=== PATIENT | female | born 1990 | race Caucasian/White ===

== ENCOUNTER 2023-12-11 15:11 | Emergency (ER) | payer BC, MEDICAID, SELFPAY ==
[2023-12-11] VITALS (7 sets, daily range): BP systolic 113–153; BP diastolic 80–102; PULSE 76–120; RESP 12–20; TEMP 36.6; O2SAT 96–100
--- NOTE | ~2023-12-11 | XR_ITS ---
EXAMINATION: XR chest 2V DATE: 12/11/2023 15:32 INDICATION: Cough TECHNIQUE: PA and lateral views of the chest are obtained. COMPARISON: None available FINDINGS: The lungs are free of acute opacities. No pleural effusion or pneumothorax. The cardiomedia stinal silhouette is normal. The visualized bones and soft tissues are unremarkable. Surgical clips i n the right upper quadrant are likely from prior cholecystectomy. IMPRESSION: 1. No acute cardiopulmonary abnormality. Reviewed, dictated and finalized at location F. CTION CONTROL SPECIALIST
--- NOTE | ~2023-12-11 | CT_ITS ---
EXAMINATION: CTA chest PE protocol DATE: 12/11/2023 20:03 INDICATION: Shortness of breath and cough, history of pulmonary embolus TECHNIQUE: Computed tomography angiography (CTA) of the chest was performed with 100 mL Omnipaque-350 intravenous contrast timed to evaluate the pulmonary arteries. Coronal maximum intensity projection 3D-reconstructions were created by the technologist. The dose-length product (DLP) was 622.04 mGy-cm. Automated exposure control and iterative reconstruction technique were employed. COMPARISON: None. FINDINGS: The pulmonary arteries are well-opacified. No pulmonary embolism is identified. No patholog ically enlarged thoracic lymph nodes are identified. The heart size is normal. There is dependent ate lectasis of the lungs. There are airspace opacities of the lingula. No pleural effusion or pneumothor ax. Changes of cholecystectomy are noted. IMPRESSION: 1. No pulmonary embolus. 2. Lingular airspace opacities, consistent with pneumonia. Reviewed, dictated and finalized at location F. IAL EDUCATION PROFESSOR
--- NOTE | 2023-12-11 15:21 | ECG_ITS ---
Measurements Intervals [place] Rate: 83 P: 52 CA: 160 QRS: 22 QRSD: 82 T: 30 QT: 328 QTc: 386 Interpretive Statements SINUS RHYTHM BORDERLINE R WAVE PROGRESSION, ANTERIOR LEADS MINIMAL Q WAVES- INFERIOR LEADS BORDERLINE ECG NO PREVIOUS ECG AVAILABLE FOR COMPARISON Electronically Signed On 12-11-2023 16:42:43 IMPORT EXPORT MANAGER by Allan Agarwal D.O.
[2023-12-11 16:53] LABS: Basophils Absolute Auto 0.1 K/mm3 (0.0-0.1); Basophils Percent Auto 0.6 % (0.2-1.2); Eosinophils Absolute Auto 0.5 K/mm3 (0-0.3); Eosinophils Percent Auto 4.8 % (0-4.4); Hematocrit 46.2 % (37.0-47.0); Hemoglobin 15.2 g/dL (12.0-15.0); Immature Granulocyte Absolute 0.12 K/mm3 (0.00-0.031); Immature Granulocyte Percent A 1.2 % (0-0.5); Lymphocytes Absolute Auto 2.18 K/mm3 (0.9-3.2); Lymphocytes Percent Auto 21.4 % (18.3-44.2); Mean Corpuscular HGB Conc 32.9 g/dl (32-36); Mean Corpuscular Hemoglobin 27.9 pg (26-34); Mean Corpuscular Volume 84.9 fl (80-100); Mean Platelet Volume 8.5 fl (7.4-10.4); Monocytes Absolute Auto 0.6 K/mm3 (0.1-0.6); Monocytes Percent Auto 6.2 % (2.6-8.5); Neutrophils Absolute Auto 6.7 K/mm3 (1.3-6.7); Neutrophils Percent Auto 65.8 % (45.5-73.1); Platelet Count Result 397 k/mm3 (150-375); Red Blood Count 5.44 M/mm3 (4.2-5.4); Red Cell Distribution Width 13.2 % (11.5-14.5); White Blood Count 10.2 K/mm3 (4.5-10.0)
[2023-12-11 16:58] LABS: Alanine Aminotransferase 39 U/L (6-35); Albumin Level 4.3 g/dL (3.5-5.1); Alkaline Phosphatase 65 U/L (38-126); Anion Gap 9 mmol/L (8-16); Aspartate Amino Transferase 25 U/L (14-36); Bilirubin,Total 0.6 mg/dL (0.2-1.3); Blood Urea Nitrogen 10 mg/dL (7-17); Calcium 10.1 mg/dL (8.4-10.2); Carbon Dioxide 25 mmol/L (22-30); Chloride 102 mmol/L (98-107); Estimated CRCL calculation 135 ml/min; Estimated Glomerular Filt Rate > 60; Glucose 90 mg/dL (65-110); Sodium 136 mmol/L (137-145)
--- NOTE | 2023-12-11 19:03 | ED.SOB ---
HPI - SOB/Dyspnea General Chief Complaint: Shortness of Breath/Dyspnea <Marilu Michael PA-C - Last Filed: 12/11/23 22:25> Stated Complaint: shortness of breath/cough/asthma <Marilu Michael PA-C - Last Filed: 12/11/23 22:25> Time Seen by Provider: 12/11/23 18:37 <Marilu Michael PA-C - Last Filed: 12/11/23 22:25> History of Present Illness HPI Narrative: 33-year-old female with a history of a PE that was diagnosed in August at [facility] reports for evaluation for cough and congestion for 12-13 days. Patient was diagnosed with a PE 2 weeks after she had a section. She is unsure what caused the PE, she was never told if she had a bleeding disorder. She has been taking IM Lovenox since and has not missed any doses. For the past pelvis or 2 days, she has developed a cough with wheezing. She was seen at [facility] the onset of her symptoms and had x-ray and viral swabs performed which were negative. She was sent home with Lala. A few days later, her symptoms persisted so she went to [facility] ER. She was admitted for asthma exacerbation and was given IV steroids with improvement. She was discharged with DuoNebs and steroids and states her symptoms have again worsened Which prompted her to come to the ER today. She has finished her prednisone today. She reports having an episode of hemoptysis 1 week ago which resolved. She reports a history of childhood asthma, but denies asthma in her adulthood. She does follow with a station master at [facility] for her PE. Patient denies fever, abdominal pain, nausea or vomiting, BLE. She reports bilateral rib pain secondary to coughing. I was able to obtain patient's CTA PE impressions from her my chart from at [facility]. The following are her recent CTA impressions: 08/25/2024: PE seen the left lower lobe segmental and subsegmental. No heart strain. 09/07/2024: Unchanged acute PE and left lower lobe. 10/11/2024: Segmental and subsegmental PE in the left lower lobe is still present in the same distribution extent that it was on the prior 09/07. It has less bulkiness and is transitioning to more of a was P chronic appearance. No evidence of new clot or acute interval change. Patient states she has not had a repeat CTA performed on her prior ER visits For the same complaint. <Marilu Michael PA-C - Last Filed: 12/11/23 22:25> Related Data Allergies/Adverse Reactions: Allergies Allergy/AdvReac Type Severity Reaction Status Date / Time ciprofloxacin Allergy Unknown Verified 12/11/23 15:13 nitrofurantoin Allergy Unknown Verified 12/11/23 15:13 <Marilu Michael PA-C - Last Filed: 12/11/23 22:25> Review of Systems Review of Systems: CONSTITUTIONAL: Denies fever, chills, or sweats. EYES: Denies visual changes, redness, or discharge. ENT: Denies rhinorrhea, congestion, sore throat, or otalgia. CARDIOVASCULAR: see HPI RESPIRATORY: See HPI GASTROINTESTINAL: Denies abdominal pain, nausea, vomiting, or diarrhea. GENITOURINARY: Denies dysuria or hematuria. SKIN: Denies rash or itching. MUSCULOSKELETAL: Denies back pain, joint pain, or myalgia. NEUROLOGIC: Denies headache, numbness, or weakness. PSYCHIATRIC: Denies anxiety or depression. <Marilu Michael PA-C - Last Filed: 12/11/23 22:25> Exam Narrative: GENERAL: Well-appearing, well-nourished, and in no acute distress. patient resting comfortably in exam bed. She is pleasant and conversational. Satting 98% on room air and speaking in full sentences. HEAD: Normocephalic, atraumatic. EYES: PERRLA and EOMI. ENT: Nares clear, no rhinorrhea or epistaxis. Mucous membranes moist. Posterior pharynx without erythema or edema. No tonsillar hypertrophy. Uvula is midline. NECK: Supple. CHEST: expiratory wheezing in the right upper lobe, otherwise no reason, rales or rhonchi. HEART: Regular rate and rhythm. No murmur heard. Normal peripheral pulses. ABDOMEN: Soft, nontender, nondistend
[2023-12-11] MEDS: ALBUTEROL SULFATE NEB 2.5 MG/3 ML INH INHALATION (19:30)
[2023-12-11 19:49] LABS: NT Pro B Type Natriuretic Pept < 20 pg/mL (19.9-100)
[2023-12-11 19:52] LABS: Troponin I < 0.012 ng/mL (0.000-0.034)
[2023-12-11 20:07] LABS: Influenza A QL RT-PCR Negative (Negative); Influenza B QL RT-PCR Negative (Negative); RSV RNA, RT-PCR Negative (Negative); SARS-CoV-2 RNA PCR Negative (Negative)
[2023-12-11] MEDS: SODIUM CHLORIDE 0.9% IV 1,000 ML 999 ML IV CONT ×2 (20:47→22:04)
[2023-12-11] MEDS: AZITHROMYCIN 250 MG TABLET 500 MG PO (22:04)
[2023-12-11] MEDS: AMOXICILLIN/CLAVULANATE K 875-125 MG TAB 1 TABLET PO (22:04)
--- NOTE | 2023-12-11 22:29 | PC.NURSE ---
this rn assumed care of patient. this rn took patient report from tom rodriguez.
== END 2023-12-11 23:31 | disposition home or self-care (01) ==
PROVIDERS: Emergency Medicine; Emergency Provider Physician Assistant
DX: J18.9 Pneumonia, unspecified organism (principal); Z20.822 Contact with and (suspected) exposure to COVID-19; Z86.711 Personal history of pulmonary embolism; Z79.01 Long term (current) use of anticoagulants; R94.31 Abnormal electrocardiogram [ECG] [EKG]
CPT/HCPCS: 36415; 71046; 71275; 80053; 83880; 84484; 85025; 87637; 93005; 94640; 96360; 96361; 99284; A9270; J7030; Q9967

== ENCOUNTER 2024-06-03 15:03 | Emergency (ER) | payer BC, MEDICAID, SELFPAY ==
--- NOTE | ~2024-06-03 | CT_ITS ---
EXAMINATION: CT lumbar spine wo con DATE: 06/03/2024 19:02 INDICATION: Left-sided low back pain. TECHNIQUE: Computed tomography (CT) of the lumbar spine was performed without intravenous contrast. A utomated exposure control and iterative reconstruction technique were employed. The dose-length produ ct was 523.70 mGy-cm. COMPARISON: None FINDINGS: Bone alignment is normal. Vertebral body heights are normal. Intervertebral disc heights ar e normal. The following disc levels are specifically discussed: L1-L2: The disc does not extend beyond the endplate margin. There is severe right and mild left facet joint osteoarthritis. There is no neural foraminal stenosis. There is no central canal stenosis. L2-L3: The disc does not extend beyond the endplate margin. There is severe bilateral facet joint ost eoarthritis. There is no neural foraminal stenosis. There is no central canal stenosis. L3-L4: The disc does not extend beyond the endplate margin. There is moderate right and severe left f acet joint osteoarthritis. There is no neural foraminal stenosis. There is no central canal stenosis. L4-L5: The disc is bulging. There is moderate bilateral facet joint osteoarthritis. There is mild gene ateral neural foraminal stenosis. There is mild central canal stenosis. L5-S1: The disc is bulging. There is mild bilateral facet joint osteoarthritis. There is mild bilater al neural foraminal stenosis. There is mild central canal stenosis. IMPRESSION: 1. Mild lumbar spondylosis. Reviewed, dictated and finalized at location E. IMPRESSION: 1. Mild lumbar spondylosis.
--- NOTE | ~2024-06-03 | CT_ITS ---
EXAMINATION: CTA chest PE protocol DATE: 06/03/2024 19:02 INDICATION: Shortness of breath. Shoulder pain. TECHNIQUE: Computed tomography angiography (CTA) of the chest was performed with 100 mL Omnipaque-350 intravenous contrast timed to evaluate the pulmonary arteries. Coronal maximum intensity projection 3D-reconstructions were created by the technologist. Automated exposure control and iterative reconst ruction technique were employed. The dose-length product was 523.70 mGy-cm. COMPARISON: Chest CT 12/11/2023 FINDINGS: The lungs demonstrate minimal atelectasis. No pleural effusion. The heart size is normal. N o pericardial effusion. There are changes of cholecystectomy. There is no pulmonary embolus. There is mild thoracic spondylosis. IMPRESSION: 1. No pulmonary embolus. Reviewed, dictated and finalized at location E. IMPRESSION: 1. No pulmonary embolus.
--- NOTE | ~2024-06-03 | US_ITS ---
EXAMINATION: US venous doppler [facility] DATE: 06/03/2024 15:40 INDICATION: Left lower limb pain. TECHNIQUE: Grayscale ultrasound images without and with compression and Doppler ultrasound images of the left lower extremity veins were obtained. COMPARISON: None. FINDINGS: The visualized portions of left common femoral vein, profunda (deep) femoral vein, femoral vein, popl iteal vein, peroneal veins, posterior tibial veins, and greater saphenous vein outflow are patent. IMPRESSION: 1. No deep venous thrombosis. Reviewed, dictated and finalized at location E.
[2024-06-03 15:06] VITALS: BP 144/80; PULSE 72; RESP 16; TEMP 36.7; O2SAT 100
[2024-06-03 17:16] VITALS: BP 129/84; PULSE 76; RESP 18; O2SAT 98
[2024-06-03 17:20] LABS: Basophils Percent Auto 0.5 % (0.2-1.2); Eosinophils Absolute Auto 0.1 K/mm3 (0-0.3); Eosinophils Percent Auto 1.1 % (0-4.4); Hematocrit 43.4 % (37.0-47.0); Hemoglobin 14.7 g/dL (12.0-15.0); Immature Granulocyte Absolute 0.03 K/mm3 (0.00-0.031); Immature Granulocyte Percent A 0.4 % (0-0.5); Lymphocytes Absolute Auto 1.98 K/mm3 (0.9-3.2); Lymphocytes Percent Auto 24.5 % (18.3-44.2); Mean Corpuscular HGB Conc 33.9 g/dl (32-36); Mean Corpuscular Hemoglobin 29.5 pg (26-34); Mean Platelet Volume 8.5 fl (7.4-10.4); Monocytes Absolute Auto 0.5 K/mm3 (0.1-0.6); Monocytes Percent Auto 6.2 % (2.6-8.5); Neutrophils Absolute Auto 5.4 K/mm3 (1.3-6.7); Neutrophils Percent Auto 67.3 % (45.5-73.1); Platelet Count Result 382 k/mm3 (150-375); Red Blood Count 4.99 M/mm3 (4.2-5.4); Red Cell Distribution Width 12.3 % (11.5-14.5); White Blood Count 8.1 K/mm3 (4.5-10.0)
--- NOTE | 2024-06-03 17:24 | PC.NURSE ---
Addendum entered by Sole Gordillo RN 06/03/24 17:26: CMS intact to left lower extremity Original Note: pt c/o left hip pain that radiates down to left knee, causing numbness. Pt states was seen at [facility] ER prior to coming to [place] ER, pt states was told it was a meniscus tear to left knee. Pt states I have a history of PE 9 months ago & I know its a DVT Pt confrontational during assessment.
--- NOTE | 2024-06-03 17:24 | PC.NURSE ---
patient complaining of discomfort at IV site, site around iv bruised, tender and swollen. iv removed at this time.
[2024-06-03 17:31] VITALS: BP 136/96; PULSE 93; RESP 19; O2SAT 100
[2024-06-03 17:33] LABS: Prothrombin Time 13.2 Seconds (11.1-14.7)
[2024-06-03 17:34] LABS: Alanine Aminotransferase 20 U/L (6-35); Albumin Level 4.6 g/dL (3.5-5.1); Alkaline Phosphatase 39 U/L (38-126); Anion Gap 10 mmol/L (4-12); Aspartate Amino Transferase 26 U/L (14-36); Bilirubin,Total 1.2 mg/dL (0.2-1.3); Blood Urea Nitrogen 4 mg/dL (7-17); Calcium 9.1 mg/dL (8.4-10.2); Carbon Dioxide 25 mmol/L (22-30); Chloride 105 mmol/L (98-107); Estimated Glomerular Filt Rate > 60; Glucose 119 mg/dL (65-110); Partial Thromboplastin Time 28.3 Seconds (22.3-36.8); Potassium 3.6 mmol/L (3.4-5.0); Sodium 140 mmol/L (137-145)
--- NOTE | 2024-06-03 17:52 | ECG_ITS ---
Test Date: 2024-06-03 19:20:20 Measurements Intervals [place] Rate: 58 P: 44 FL: 172 QRS: 35 QRSD: 80 T: 14 QT: 416 QTc: 410 Interpretive Statements SINUS BRADYCARDIA BASELINE ARTIFACT- II, III, AVF, V1, V4 BORDERLINE ECG No previous ECG available for comparison Electronically Signed On 06-03-2024 19:28:10 CDT by Allan Agarwal D.O.
--- NOTE | 2024-06-03 17:58 | ED.EXTPRO ---
HPI - Extremity Problem General Chief complaint: Extremity Problem,Nontraumatic Stated complaint: LEFT leg dvt, hx of PE Time Seen by Provider: 06/03/24 17:16 Source: patient Mode of arrival: ambulatory Limitations: no limitations History of Present Illness HPI Narrative: This is a 33-year-old female that presents to the emergency department for left-sided hip pain. Reports radiation down the leg. Reports tingling down her leg as well. No recent injuries or trauma. She also reports she has been having some left shoulder pain. Reports feeling lightheaded upon standing and her heart racing. Reports similar symptoms when she had a PE which concerned her and prompted her to be seen. She was already seen for this complaint this morning at another hospital. Denies chest pain, erythema. Related Data Allergies Allergy/AdvReac Type Severity Reaction Status Date / Time ciprofloxacin Allergy Unknown Verified 12/11/23 15:13 nitrofurantoin Allergy Unknown Verified 12/11/23 15:13 Review of Systems Review of Systems: CONSTITUTIONAL: Denies fever CARDIOVASCULAR: Reports palpitations. Denies chest pain RESPIRATORY: Reports dyspnea. MUSCULOSKELETAL: Reports joint pain, and myalgia. NEUROLOGIC: Reports paresthesias All systems reviewed & are unremarkable except as noted in HPI and below PMFSH Past Medical History Medical History (Updated 06/03/24 @ 19:39 by Yakelin Witt PA-C) History of seasonal allergies Social History Social History (Updated 06/03/24 @ 18:01 by Yakelin Witt PA-C) Smoking status: Never smoker Exam Narrative: GENERAL: Well-appearing, well-nourished, and in no acute distress. HEAD: Normocephalic, atraumatic. EYES: EOMI. CHEST: Clear to auscultation. No respiratory distress. No wheezes rales or rhonchi HEART: Regular rate and rhythm. No murmur heard. Normal peripheral pulses. BACK: No midline spinal tenderness EXTREMITIES: Normal range of motion. No edema or erythema. Normal DP pulses SKIN: Warm, dry, no rash. NEURO: No focal deficits. Alert and oriented x3. PSYCH: Normal mood and affect Course Course Emergency Course: Patient updated on workup and agrees with plan of care Vital Signs Vital signs: Vital Signs Temperature 98.0 F 06/03/24 15:06 Pulse Rate 72 06/03/24 15:06 Respiratory Rate 16 06/03/24 15:06 Blood Pressure 144/80 H 06/03/24 15:06 Pulse Oximetry 100 06/03/24 15:06 Temperature 98.0 F 06/03/24 15:06 Pulse Rate 78 06/03/24 19:03 Respiratory Rate 19 06/03/24 19:03 Blood Pressure 136/96 H 06/03/24 17:31 Pulse Oximetry 100 06/03/24 19:03 MDM - Extremity (Nontraumatic) MDM Narrative Medical decision making narrative: Patient presents to the emergency department for left-sided hip / low back pain. Radiating into the leg. Ongoing over the last several days. No recent injury or trauma. Evaluated at another hospital this morning. Presented tonight as she has also had left shoulder pain. Reported feeling short of breath. Reports similar symptoms when she had a PE. She is afebrile and nontoxic appearing. Her vitals are stable. She is neurovascularly intact. CBC and metabolic panel without concerning findings. EKG without concerning changes. Left lower extremity venous Doppler without evidence of DVT. CTA chest without PE. CT lumbar spine shows mild lumbar spondylosis. Patient updated on workup and agrees with plan of care. She was instructed to follow up with primary provider. Will be given information for follow-up with Neurosurgery if symptoms persist. She was given warnings to return to the ER Differential Diagnosis Differential diagnosis: Likely deep vein thrombosis of lower extremity and other (PE, lumbar radiculopathy, muscle strain) Lab Data Attestation: I reviewed the patient's lab results. 06/03/24 17:13 06/03/24 17:13 Labs: Lab Results 06/03/24 Range/Units 17:13 WBC 8.1 (4.
[2024-06-03 19:03] VITALS: PULSE 78; RESP 19; O2SAT 100
--- NOTE | 2024-06-03 19:12 | PC.NURSE ---
Pt refused preg test
[2024-06-03] MEDS: ACETAMINOPHEN 500 MG TABLET 1000 MG PO (19:21)
[2024-06-03] MEDS: diazePAM INJ (*CRX) 10 MG/2 ML SYRINGE 5 MG IV PUSH (19:21)
[2024-06-03] MEDS: predniSONE 20 MG TABLET 60 MG PO (20:17)
[2024-06-03] MEDS: KETOROLAC 15 MG/ML VIAL (*BKC) IV PUSH (20:18)
[2024-06-03 20:36] VITALS: BP 134/70; PULSE 84; RESP 17; O2SAT 100
--- NOTE | 2024-06-03 20:39 | PC.NURSE ---
Family member in room removed pt IV. Pt able to ambulate to wheelchair herself. Family member wheeled pt out of dept.
== END 2024-06-03 20:41 | disposition home or self-care (01) ==
PROVIDERS: Emergency Medicine; Emergency Provider Physician Assistant
DX: M54.16 Radiculopathy, lumbar region (principal); M25.512 Pain in left shoulder
CPT/HCPCS: 36415; 71275; 72131; 80053; 85025; 85610; 85730; 93005; 93971; 96374; 96375; 99284; A9270; J1885; J3360; J7512; Q9967

== ENCOUNTER 2024-06-22 16:47 | Observation (INO) | payer BC, SELFPAY ==
--- NOTE | ~2024-06-22 | CT_ITS ---
EXAMINATION: CTA BRAIN/CAROTID DATE: 06/22/2024 21:33 INDICATION: Diplopia TECHNIQUE: Computed tomographic angiography (CTA) of the head and neck was performed with 100 mL Omni paque-350 intravenous contrast. Multiplanar reconstructions and maximum intensity projection 3D-recon structions of the carotid arteries and of the intracranial arteries were created by the technologist on a separate workstation. Precontrast CT of the head was also obtained. Automated exposure control and iterative reconstruction technique were employed.The dose-length product was 1746.10 mGy-cm. COMPARISON: None. FINDINGS: Carotid arteries: Thoracic aorta is normal in caliber with no dissection and without evident atherosclerotic plaque. Th ere is no evident atherosclerotic plaque at the carotid bulbs with 0% stenosis of the right and left carotid bulbs relative to normal distal artery lumen diameter (NASCET criteria). Cervical soft tissue s are unremarkable. Mild dependent atelectasis in the bilateral lower lobes. Lungs are otherwise gordon r. No pulmonary embolism in the visualized mid and upper lungs. Head: No acute intracranial hemorrhage, acute infarction or abnormal extra axial fluid collection. Ventricl es are normal and symmetric. No mass/mass effect. The orbits, paranasal sinuses and mastoid air cells are normal. Intracranial arteries There is no hemodynamically significant stenosis in the vertebral, basilar and internal carotid arter ies. Vertebral arteries are codominant. There are no aneurysms identified. Both A1 and P1 segments a re patent. Cerebral arterial arborization appears symmetric. IMPRESSION: 1. No evident atherosclerotic plaque with 0% stenosis of the right and left carotid bulbs relative to normal distal artery lumen diameter (NASCET criteria). 2. Normal head CT and cerebral CT angiogram. Reviewed, dictated and finalized at location A. IMPRESSION: 1. No evident atherosclerotic plaque with 0% stenosis of the right and left car otid bulbs relative to normal distal artery lumen diameter (NASCET criteria). 2. Normal head CT and cerebral CT angiogram.
--- NOTE | ~2024-06-22 | MR_ITS ---
MRI of the brain Clinical History: Diplopia Technique: Axial and sagittal T1-weighted images were acquired. These were followed by axial T2-weigh gene, diffusion weighted, gradient, and FLAIR images. Findings: There is no acute infarct, intracranial hemorrhage, or mass lesion. No abnormal signal seen in the brain parenchyma. Ventricles and subarachnoid spaces are unremarkable. Orbits are unremarkable. Paranasal sinuses and m astoid air cells are clear. Major intracranial flow voids are intact. Sagittal midline structures are intact. IMPRESSION: Unremarkable exam. Reviewed, dictated and finalized at location M. IMPRESSION: Unremarkable exam.
[2024-06-22 16:52] VITALS: BP 150/87; PULSE 132; RESP 16; TEMP 36.6; O2SAT 99
--- NOTE | 2024-06-22 19:45 | PC.NURSE ---
While patient was performing vision test, patient states closing her left eye worsened her double vision, while closing her right eye worsened her blurry vision. Resolved when opening both eyes.
--- NOTE | 2024-06-22 20:06 | ED.EYEPROB ---
HPI - Eye Problem General Chief complaint: Eye Problems Stated complaint: blurry vision x 3 hours Time Seen by Provider: 06/22/24 19:08 Source: patient Limitations: no limitations History of Present Illness HPI Narrative: Patient is a 33-year-old female presents to the emergency department complaining of blurred vision and double vision, started around 1:30 p.m. today while at rest, has been constant has not gone away, no history is in the past, does wear corrective lenses. Patient denies any recent injuries or recent illness. Patient does know for the past few months he has had some neuropathy in her left leg for which they were concerned about MS but has not had a workup for it. Patient denies eye pain, headache, new numbness or weakness, chest pain, difficulty breathing, neck pain. patient admits to the double vision being present when both eyes are open and then it goes away when she closes Her left eye keeps the right eye open where as it is still present and she closes her right eye and keep her left eye open. Patient denies photophobia, nausea. Patient notes that her double vision is the worst when she is looking straight ahead and better when looking towards her left or her right. Related Data Home Medications Medication Instructions Recorded Confirmed dexmethylphenidate 15 mg 15 mg PO DAILY 06/22/24 06/22/24 capsule,extended release [id number] fluoxetine 20 mg capsule 20 mg PO HS 06/22/24 06/22/24 hydrocodone 5 mg-acetaminophen 325 1 tablet PO Q6-8H PRN Pain 06/22/24 06/22/24 mg tablet orphenadrine citrate 100 mg 100 mg PO BID PRN Muscle Spasm 06/22/24 06/22/24 tablet,extended release Allergies Allergy/AdvReac Type Severity Reaction Status Date / Time ciprofloxacin Allergy Other Verified 06/22/24 23:33 nitrofurantoin Allergy Other Verified 06/22/24 23:33 Review of Systems Review of Systems: A 10 system review of systems was completed on the patient and is negative except for what is stated in the HPI. Nursing and ancillary documentation was reviewed. [facility] Past Medical History Medical History (Updated 06/22/24 @ 20:51 by Chepe Tai DO) History of seasonal allergies Social History Social History (Updated 06/03/24 @ 18:01 by Yakelin Witt PA-C) Smoking status: Never smoker Alcohol intake: current Substance use type: marijuana Other substance usage details: rarely Do You Feel Safe in your Home?: Yes Lack of Transportation: No Lack of Food: Never True Current Housing: I Have Housing Concerned About Future Housing: No Difficulty Paying Gas/Electric Bills: No Difficulty Paying for Meds: No Currently Unemployed: No Education: High School Diploma/GED Difficulty w/ Childcare or Family Care: No Spiritual care concerns: No Comments At time of signature, I have reviewed and agree with nursing past medical, surgical, social and family history unless otherwise noted. Please see the nursing chart for further information. There is no relevant family history pertinent to the presenting complaint. Exam Narrative: CONST: No acute distress. Well nourished. HENMT: Head is normocephalic and atraumatic. Moist mucous membranes. No posterior oropharynx erythema. EYES: No scleral icterus. No conjunctival injection or pallor. PERRLA. Visual cosby intact to confrontation. Extraocular motions intact. No afferent pupillary defect. When having patient go from looking all the way to her left with both thighs to looking all the way to the right it appears that sometimes the left eye has a slight lag compared to the movement of the right eye when looking towards the right but then resolves. Left eye visual acuity is 20/70. Right eye visual acuity is 20/40. Visual acuity with both eyes opened is 20/30. NECK: No meningeal signs. No carotid bruits to auscultation bilaterally. RESP: Able to speak in full sentences. Normal respiratory effort. CTAB. CAR
[2024-06-22 20:33] VITALS: BP 134/98; PULSE 59; RESP 15; O2SAT 99
[2024-06-22 20:36] LABS: BEDSIDEPREGUCG Negative
[2024-06-22 20:38] LABS: Basophils Percent Auto 0.5 % (0.2-1.2); Eosinophils Absolute Auto 0.2 K/mm3 (0-0.3); Hematocrit 38.7 % (37.0-47.0); Hemoglobin 13.4 g/dL (12.0-15.0); Immature Granulocyte Absolute 0.03 K/mm3 (0.00-0.031); Immature Granulocyte Percent A 0.5 % (0-0.5); Lymphocytes Percent Auto 31.8 % (18.3-44.2); Mean Corpuscular HGB Conc 34.6 g/dl (32-36); Mean Corpuscular Hemoglobin 30.3 pg (26-34); Mean Corpuscular Volume 87.6 fl (80-100); Mean Platelet Volume 8.5 fl (7.4-10.4); Monocytes Absolute Auto 0.4 K/mm3 (0.1-0.6); Monocytes Percent Auto 7.4 % (2.6-8.5); Neutrophils Absolute Auto 3.4 K/mm3 (1.3-6.7); Neutrophils Percent Auto 56.8 % (45.5-73.1); Platelet Count Result 359 k/mm3 (150-375); Red Blood Count 4.42 M/mm3 (4.2-5.4)
[2024-06-22 20:41] LABS: Anion Gap 9 mmol/L (4-12); Blood Urea Nitrogen 2 mg/dL (7-17); Calcium 8.6 mg/dL (8.4-10.2); Carbon Dioxide 27 mmol/L (22-30); Chloride 102 mmol/L (98-107); Estimated CRCL calculation 131 ml/min; Estimated Glomerular Filt Rate > 60; Glucose 86 mg/dL (65-110); Potassium 3.1 mmol/L (3.4-5.0); Sodium 138 mmol/L (137-145)
[2024-06-22] MEDS: POTASSIUM CHLORIDE 20 MEQ PACKET (FOR LIQUID) 40 MEQ PO (20:57)
[2024-06-22 21:02] LABS: Add Urine Microscopic? NO; Appearance Urine Clear (Clear); Bilirubin Urine Negative (Negative); Blood Urine Negative (Negative); Color Urine Yellow (Yellow); Glucose Urine UA Negative (Negative); Ketones Urine Negative (Negative); Leukocyte Esterase Ur Negative LEU/UL (Negative); Nitrate Urine Negative (Negative); Protein Urine Negative (Negative); Specific Grav Ur 1.004 (1.001-1.035); Urobilinogen Urine 0.2 mg/dL (<2.0); pH Urine 6.5 (5.0-9.0)
--- NOTE | 2024-06-22 21:03 | PC.NURSE ---
when administering powder potassium, patient requests tablet form. EDP made aware and VORB for potassium tablet 40 mg.
[2024-06-22] MEDS: POTASSIUM CHLORIDE 20 MEQ ER TABLET 40 MEQ (21:04)
[2024-06-22 21:24] LABS: Magnesium 1.8 mg/dL (1.6-2.3)
--- NOTE | 2024-06-22 22:02 | PM.IMHP ---
H&P: HPI History of Present Illness Date/Time: 06/22/24 22:02 Chief Complaint: double vision Narrative: this is a 33-year-old female with past medical history significant for generalized anxiety disorder, ADHD. Patient presents to the emergency room due to complaints of double vision. Denies any headaches, nausea, vomiting, fevers, rigors, chills has had unintentional weight loss of 15 lb, denies rashes denies joint pain denies focal weakness denies loss of vision on. Patient was ruled out for MS with MRI somewhere else is according to patient she was told that she did not have MS. Preliminary workup in our emergency room has been initially non revealing. Patient has been placed in observation for further evaluation management and treatment. EXAMINATION: CTA BRAIN/CAROTID DATE: 06/22/2024 21:33 INDICATION: Diplopia TECHNIQUE: Computed tomographic angiography (CTA) of the head and neck was performed with 100 mL Omnipaque-350 intravenous contrast. Multiplanar reconstructions and maximum intensity projection 3D-reconstructions of the carotid arteries and of the intracranial arteries were created by the technologist on a separate workstation. Precontrast CT of the head was also obtained. Automated exposure control and iterative reconstruction technique were employed.The dose-length product was 1746.10 mGy-cm. COMPARISON: None. FINDINGS: Carotid arteries: Thoracic aorta is normal in caliber with no dissection and without evident atherosclerotic plaque. There is no evident atherosclerotic plaque at the carotid bulbs with 0% stenosis of the right and left carotid bulbs relative to normal distal artery lumen diameter (NASCET criteria). Cervical soft tissues are unremarkable. Mild dependent atelectasis in the bilateral lower lobes. Lungs are otherwise clear. No pulmonary embolism in the visualized mid and upper lungs. Head: No acute intracranial hemorrhage, acute infarction or abnormal extra axial fluid collection. Ventricles are normal and symmetric. No mass/mass effect. The orbits, paranasal sinuses and mastoid air cells are normal. Intracranial arteries There is no hemodynamically significant stenosis in the vertebral, basilar and internal carotid arteries. Vertebral arteries are codominant. There are no aneurysms identified. Both A1 and P1 segments are patent. Cerebral arterial arborization appears symmetric. IMPRESSION: 1. No evident atherosclerotic plaque with 0% stenosis of the right and left carotid bulbs relative to normal distal artery lumen diameter (NASCET criteria). 2. Normal head CT and cerebral CT angiogram. Review of Systems Review of Systems: double vision Constitutional: Constitutional: Denies chills, Denies fatigue, Denies fever(s), Denies headache(s), Denies malaise, Denies night sweats and Denies poor appetite Eyes: Eyes: Denies blurry vision, Reports change in vision, Reports diplopia, Denies floaters, Denies loss of vision, Denies other visual disturbances, Denies eye pain, Denies seeing flashes and Denies spots in vision ENT: Denies dysphagia, Denies vertigo, Denies dizziness and Denies odynophagia Cardiovascular: Cardiovascular: Denies chest pain Respiratory: Respiratory: Denies cough Gastrointestinal: Gastrointestinal: Denies abdominal pain, Denies nausea and Denies vomiting Genitourinary: Genitourinary: Denies dysuria Musculoskeletal: Musculoskeletal: Denies myalgias, Denies arthralgias, Denies joint swelling, Denies muscle cramps, Denies muscle weakness, Denies stiffness and Denies tingling Integumentary/Breasts: Skin/Breast: Denies rash Neurologic: Denies abnormal gait, Denies focal weakness, Denies loss of vision and Denies Sensory deficit (Neuro) Psychiatric: Psychiatric: Reports no additional psychiatric complaints and Reports as per HPI Endocrine: Endocrine: Denies cold intolerance, Denies heat intolerance, Denies polyphagia, Denies polydipsia, Denies polyuria and Denies palpitati
[2024-06-22 22:22] VITALS: BP 136/90; PULSE 59; RESP 15; O2SAT 100
--- NOTE | 2024-06-22 23:05 | ADMGEN ---
This patient, Lindsey Tovar, was admitted to Medical Room 343-01. Patient/family oriented to hospital policies and general routines including ID bracelet, bed and alarms, visiting hours, pain management, procedures, bathroom and other care routines, personal items, smoking policy, room service/diet, and visiting hours. Information on how to activate the Rapid Response Team has been discussed. Patient/Family are encouraged to report perceived risks to care and to ask questions if they do not understand what they are told or what they should do.
[2024-06-22 23:46] VITALS: BP 133/80; PULSE 67; RESP 20; TEMP 36.2; O2SAT 99; BMI 32.5
--- NOTE | 2024-06-23 | ECHO_ITS ---
Patient Info Name: Lindsey Tovar Age: 33 years : 1990 Gender: Female Ht: 66 in Wt: 202 lbs BSA: 2.10 m2 HR: 67 bpm BP: 133 / 80 mmHg Technical Quality: Good Exam Date: 06/23/2024 10:20 AM Exam Location: Echo Lab Patient Status: Outpatient Admit Date: 06/22/2024 Staff Ordering Physician: Jah Posada MD Poster: Irene Bautista RDCS Attending Provider: Cee Sher APRN Referring Physician: Swetha DELANEY; Exam Type: CA echo doppler color flow Study Info Indications - murmur/diplopia Complete two-dimensional, color flow and Doppler transthoracic echocardiogram is performed. Summary 1. Left ventricular chamber dimension is normal. 2. Left ventricular systolic function is normal, estimated at 60-65%. 3. The left ventricular diastolic function is normal. 4. Right ventricular systolic function is normal. 5. There is mild pulmonic regurgitation. Left Ventricle Left ventricular chamber dimension is normal. Left ventricular systolic function is normal, estimated at 60-65%. There is no increased left ventricular wall thickness. The left ventricular diastolic function is normal. Right Ventricle Right ventricular chamber dimension is normal. Right ventricular systolic function is normal. Left Atria Left atrial chamber dimension is normal. Right Atria Right atrial chamber dimension is normal. Atrial Septum Intact interatrial septum visualized by color flow imaging. Aortic Valve The aortic valve is probable trileaflet. There is no aortic valve stenosis. There is no aortic valve regurgitation. Pulmonic Valve The pulmonic valve is normal. There is mild pulmonic regurgitation. Mitral Valve The mitral valve has normal leaflets. There is trace mitral valve regurgitation. Tricuspid Valve The tricuspid valve leaflets are normal. There is trace tricuspid valve regurgitation. Pericardium/Pleural There is no pericardial effusion. Inferior Vena Cava Normal inferior vena cava with >50% collapse upon inspiration consistent with normal right atrial pressure, 3 mmHg. Aorta The aortic root size at the sinus of Valsalva is normal. Left Ventricular Outflow Tract Name Value Normal LVOT 2D LVOT Diameter 1.8 cm LVOT Doppler LVOT Peak Gradient 6 mmHg LVOT Mean Gradient 3 mmHg LVOT VTI 27 cm LVOT VTI/AV VTI Ratio 0.9 LVOT Stroke Volume 67 ml LVOT CO 3.9 l/min LVOT CI 1.8 l/min/m2 Pulmonic Valve Name Value Normal PV Doppler PV Peak Gradient 7 mmHg PV Regurgitation Doppler IN Peak End Diastolic Velocity 66 cm/s Mitral Valve
[2024-06-23] MEDS: ORPHENADRINE CITRATE 100 MG TABLET.ER PO (00:06)
[2024-06-23] MEDS: FLUoxetine HCL 20 MG CAPSULE PO (00:06)
[2024-06-23] MEDS: HYDROcodone/acetaminophen (*CRX) 5-325 MG TABLET 1 TAB PO ×3 (00:06→13:08)
[2024-06-23 06:00] VITALS: BP 118/67; PULSE 54; RESP 20; TEMP 36.3; O2SAT 100
[2024-06-23] MEDS: LORazepam INJ (*CRX) 2 MG/ML VIAL 1 MG IV PUSH (09:09)
--- NOTE | 2024-06-23 13:13 | PM.DS ---
DS: Admitting Diagnosis Discharge Date 06/23/2024 Admitting Diagnosis Diplopia DS: Discharge Diagnosis Discharge Diagnosis (1) Diplopia: Code(s): H53.2 - Diplopia Status: Acute Assessment and Plan: Plan Place in observation MRI of the brain in the morning echocardiogram CT reviewed supportive care DS: Summary Hospital Course Reason for hospitalization: Diplopia Hospital Course: Admission: Chief Complaint: double vision Narrative: This was a 33-year-old female with past medical history significant for generalized anxiety disorder, ADHD. Patient presents to the emergency room due to complaints of double vision. Denies any headaches, nausea, vomiting, fevers, rigors, chills has had unintentional weight loss of 15 lb, denies rashes denies joint pain denies focal weakness denies loss of vision on. Patient was ruled out for MS with MRI somewhere else is according to patient she was told that she did not have MS. Preliminary workup in our emergency room has been initially non revealing. Patient has been placed in observation for further evaluation management and treatment. 06/23/2024: Assumed Care/DISCHARGED MRI was negative for any acute findings CTA with no stenosis and ECHO unremarkable. Patient had mild diplopia during my exam but denied any headache, Nausea, Vomiting, CP, SOB, or dizziness. Patient was discharged to home recommended follow-up with social sciences research scientist as well as discontinuing orphenadrine citrate which can cause visual changes such as blurred vision. Patient with normal gait, alert and oriented, with no deficits during discharge assessment. Status at Discharge Functional status at discharge: independent ambulation Time Spent with Patient Time attestation: Total time spent providing and/or coordinating discharge services: Time spent: Greater than 30 minutes Exam Narrative: patient is laying in a stretcher Const: General: comfortable, no acute distress, well developed, alert, awake, average body habitus and overweight Nutritional Appearance: average body habitus and overweight Orientation/consciousness: patient oriented x3 HENMT: Head: normal to inspection, normocephalic and atraumatic Ears: hearing grossly normal bilaterally Face/Nose/Sinus: normal facial exam Face and sinus: normal facial exam Eyes: General: appearance normal, both eyes and all related structures Pupils: Equal, round and reactive pupils present EOM: EOMs intact bilaterally Neck: Neck: full ROM, no lymphadenopathy and no JVD Thyroid: thyroid normal Lymphatic: no lymphadenopathy noted Resp: Effort & Inspection: normal respiratory effort and able to speak in complete sentences Auscultation: clear to auscultation bilaterally Cardio: Jugular venous distension: no JVD Rate: regular rate Rhythm: regular rhythm Heart sounds: S1 normal heart sound present and S2 normal heart sound present : General: Yes deferred Skin: Rashes: no rashes Wounds: no wounds Neuro: General: patient oriented x3 and CN's II-XI intact bilaterally Cranial nerves: Yes CN's II-XII intact bilaterally and Yes Equal, round and reactive pupils present Cognition (Neuro): normal cognition Speech: normal speech Gait exam (Neuro): Normal gait present Motor exam (neuro): 5/5 motor strength present throughout Sensory Exam: No Sensory deficit (Neuro) Extrem: General: normal to inspection, full ROM, no joint enlargement and no pedal edema DS: Data Data Completed and Pending Labs on day of discharge: Labs from last 24 hours 06/22/24 06/22/24 06/22/24 20:55 20:34 20:23 WBC 6.0 RBC 4.42 Hgb 13.4 Hct 38.7 MCV 87.6 MCH 30.3 MCHC 34.6 RDW 12.0 Plt Count 359 MPV 8.5 Immature Gran % (Auto) 0.5 Neut % (Auto) 56.8 Lymph % (Auto) 31.8 [place] % (Auto) 7.4 Eos % (Auto) 3.0 Baso % (Auto) 0.5 Lymph # (Auto) 1.90 [place] # (Auto) 0.4 Eos # (Auto) 0.2 Baso
== END 2024-06-23 14:49 | disposition home or self-care (01) ==
LOC: ANHED 22:10 → ANH3MED 06-23 06:57
PROVIDERS: Admitting Provider Internal Medicine; Emergency Provider Student in an Organized Health Care Education/Training Program; Visit Provider Nurse Practitioner Family
DX: H53.2 Diplopia (principal); E87.6 Hypokalemia; I37.1 Nonrheumatic pulmonary valve insufficiency; F90.9 Attention-deficit hyperactivity disorder, unspecified type; F41.9 Anxiety disorder, unspecified
CPT/HCPCS: 36415; 70496; 70498; 70551; 80048; 81003; 81025; 83735; 85025; 93306; 96374; 99285; A9270; G0378; J2060; Q9967

== ENCOUNTER 2024-08-13 14:35 | Emergency (ER) | payer BC, SELFPAY ==
--- NOTE | ~2024-08-13 | CT_ITS ---
EXAMINATION: CT cervical spine wo con DATE: 08/13/2024 17:44 INDICATION: TECHNIQUE: Computed tomography (CT) of the cervical spine was performed without intravenous contrast. Automated exposure control and iterative reconstruction technique were employed. Exam dose: 423.27 mGy-cm total exam DLP. COMPARISON: None FINDINGS: There is mild reversal cervical curvature which may be due to muscle spasm. Normal alignment at the atlantoaxial joints. C1 and C2 are normally aligned and the odontoid process is intact. No fracture or dislocation or locked facet or prevertebral soft tissue swelling. The cervical interspaces are well preserved. The facet joints and uncovertebral joints are unremarkable. The following disc levels are specifically discussed: C2-C3: The disc does not extend beyond the endplate margin. There is no uncovertebral joint osteoarth ritis. There is no facet joint osteoarthritis. There is no neural foraminal stenosis. There is no raciel tral canal stenosis. C3-C4: The disc does not extend beyond the endplate margin. There is no uncovertebral joint osteoarth ritis. There is no facet joint osteoarthritis. There is no neural foraminal stenosis. There is no raciel tral canal stenosis. C4-C5: The disc does not extend beyond the endplate margin. There is no uncovertebral joint osteoarth ritis. There is no facet joint osteoarthritis. There is no neural foraminal stenosis. There is no raciel tral canal stenosis. C5-C6: The disc does not extend beyond the endplate margin. There is no uncovertebral joint osteoarth ritis. There is no facet joint osteoarthritis. There is no neural foraminal stenosis. There is no raciel tral canal stenosis. C6-C7: The disc does not extend beyond the endplate margin. There is no uncovertebral joint osteoarth ritis. There is no facet joint osteoarthritis. There is no neural foraminal stenosis. There is no raciel tral canal stenosis. C7-T1: The disc does not extend beyond the endplate margin. There is no uncovertebral joint osteoarth ritis. There is no facet joint osteoarthritis. There is no neural foraminal stenosis. There is no raicel tral canal stenosis. Normal size and homogeneous density of the thyroid gland. No superior mediastinal mass lesion or lymp hadenopathy or cervical mass lesion or lymphadenopathy is noted. IMPRESSION: Mild reversal of cervical curvature; otherwise unremarkable examination Reviewed, dictated and finalized at Location A. Reviewed, dictated and finalized at location A. IMPRESSION: Mild reversal of cervical curvature; otherwise unremarkable examin ation
[2024-08-13 14:35] VITALS: BP 132/97; PULSE 74; RESP 16; TEMP 36.3; O2SAT 98
--- NOTE | 2024-08-13 15:37 | PC.NURSE ---
Pt educated that provider would like a urine sample. Pt states she cannot do that right now d/t dehydration.
--- NOTE | 2024-08-13 17:00 | PC.NURSE ---
This RN attempted peripheral IV access with no success. Loretta RN to bedside to attempt.
--- NOTE | 2024-08-13 17:20 | PC.NURSE ---
Pt states that she believes she is approximately 3-4 weeks . Dilauded ordered. This RN called pharmacy who stated that dilauded can cause harm. Pt notified of risk. Pt is A&Ox4 and verbalized understanding. Pt states she would still like the dilauded. Md Nye also spoke with pt about risks. Pt informed of risks prior to medication administration.
[2024-08-13] MEDS: HYDROmorphone HCL INJ (*CRX) 1 MG/ML SYR IV PUSH (17:31)
[2024-08-13 17:34] VITALS: BP 138/84; PULSE 68; RESP 16; O2SAT 98
--- NOTE | 2024-08-13 17:45 | PC.NURSE ---
Pt reports that she continues to be unable to give us a urine sample. CT completed. at bedside. Pt has no additional needs at this time.
--- NOTE | 2024-08-13 18:11 | ED.GENADULT ---
HPI - General Adult General Chief complaint: Unspecified Stated complaint: neck pain, arm tingling Time Seen by Provider: 08/13/24 15:26 History of Present Illness HPI narrative: This is a 33-year-old female presenting ED with chief complaint of left neck and arm pain. Patient says that starting 2 days ago she had a burning pain that starts in her neck and encompasses her entire left arm. The pain is constant and severe. Patient has taken Tylenol and Motrin with no relief. Patient is 8 weeks . Patient says that she does not care that Motrin could be damaging to the baby because of the pain she is in. Patient has been to multiple emergency rooms over the last 6 months with different pain syndromes and neurologic deficits. She has been referred to multiple specialists but says that she has not made any of the appointments because they are always scheduled too far in the future. She has had multiple MRIs performed at outside facilities as well as our facility that are always negative. She feels like no one is willing to help her. She is tearful. She frequently says your not going to do anything for me just discharge me. Patient was receiving opiate pain medication from her primary care physician although she has not received any for 4 weeks. Related Data Home Medications Medication Instructions Recorded Confirmed dexmethylphenidate 15 mg 15 mg PO DAILY 06/22/24 06/22/24 capsule,extended release [id number] fluoxetine 20 mg capsule 20 mg PO HS 06/22/24 06/22/24 hydrocodone 5 mg-acetaminophen 325 1 tablet PO Q6-8H PRN Pain 06/22/24 06/22/24 mg tablet Allergies Allergy/AdvReac Type Severity Reaction Status Date / Time ciprofloxacin Allergy Other Verified 06/22/24 23:33 nitrofurantoin Allergy Other Verified 06/22/24 23:33 [facility] Past Medical History Medical History History of seasonal allergies Pain syndrome, chronic Social History Social History Smoking status: Never smoker Alcohol intake: current Substance use type: marijuana Other substance usage details: rarely Do You Feel Safe in your Home?: Yes Lack of Transportation: No Lack of Food: Never True Current Housing: I Have Housing Concerned About Future Housing: No Difficulty Paying Gas/Electric Bills: No Difficulty Paying for Meds: No Currently Unemployed: No Education: High School Diploma/GED Difficulty w/ Childcare or Family Care: No Spiritual care concerns: No Exam Narrative: APPEARANCE: Patient is tearful and crying. She is laying prone on the bed when I arrive. She is speaking into the mattress. Head: atraumatic. EYES: EOMI, NOSE: Atraumatic NECK: Tension in the left trapezius muscle. Patient says that she cannot move her neck however while she is speaking she is moving her head back and forth. RESPIRATORY: No increased rate of breathing CARDIOVASCULAR: RRR, ABDOMINAL: Non-distended MUSCULOSKELETAl: No obvious deformities NEURO: Alert. Focal exam of the left arm reveals radian ulnar and median nerve distributions intact. Patient reports decreased sensation. Radial and ulnar nerves intact. SKIN:: Warm, dry. Normal color PSYCHIATRIC: Normal affect Course Vital Signs Vital signs: Vital Signs Temperature 97.4 F L 08/13/24 14:35 Pulse Rate 74 08/13/24 14:35 Respiratory Rate 16 08/13/24 14:35 Blood Pressure 132/97 H 08/13/24 14:35 Pulse Oximetry 98 08/13/24 14:35 Temperature 97.4 F L 08/13/24 14:35 Pulse Rate 68 08/13/24 17:34 Respiratory Rate 16 08/13/24 17:34 Blood Pressure 138/84 08/13/24 17:34 Pulse Oximetry 98 08/13/24 17:34 Medical Decision Making MDM Narrative Medical decision making narrative: -Course: 33-year-old female presenting with 2 days of left neck and left arm pain. Patient is tearful and emotionally distraught. Her physic
--- NOTE | 2024-08-13 19:23 | PC.NURSE ---
This RN went into pt room to remove IV and d/c pt. Pt not in room at this time.
--- NOTE | 2024-08-13 20:06 | PC.NURSE ---
This RN attempted to phone pt and pt with numbers on file. No answer at either number.
--- NOTE | 2024-08-13 20:07 | PC.NURSE ---
Pt left prior to receiving d/c paperwork.
--- NOTE | 2024-08-13 20:07 | PC.NURSE ---
Per hospital policy, [place] [employer] phoned for welfare check on pt d/t pt leaving hospital without staff knowledge and IV in place.
--- NOTE | 2024-08-13 20:24 | PC.NURSE ---
PD returned phone call. Pt removed IV.
== END 2024-08-13 20:06 | disposition home or self-care (01) ==
PROVIDERS: Emergency Provider Emergency Medicine
DX: O99.891 Other specified diseases and conditions complicating pregnancy (principal); R20.0 Anesthesia of skin; M79.602 Pain in left arm; O99.351 Diseases of the nervous system complicating pregnancy, first trimester; G89.4 Chronic pain syndrome; Z3A.08 8 weeks gestation of pregnancy
CPT/HCPCS: 72125; 96374; 99284; J1170